=== PATIENT | male | born 1960 | race African-American/Black ===

== ENCOUNTER 2017-03-28 18:56 | Emergency (ER) | payer OTHER ==
[~2017-03-28] VITALS: Ht 167.6 cm; Wt 78.0 kg
[~2017-03-28 18:56] MED LIST: AMBIEN10 MG PO; AMLODIPINE BESYL5 MG PO; Aspirin E.C. PO; CLINDAMYCIN HC300 MG PO; CYCLOBENZAPRINE10 MG PO; ELAVIL25 MG PO; FLEXERIL10 MG PO; FLUOXETINE HCL10 MG PO; FLUOXETINE HCL40 MG PO; GABAPENTIN100 MG PO; GLIPIZIDE5 MG PO; HEPARIN SO5000 UNITS SC; IBUPROFEN800 MG PO; KEPPRA1000 MG PO; LANTUS 10100 UNITS/ SC; LEVETIRACETAM1000 MG PO; LIPITOR40 MG PO; LISINOPRIL2.5 MG PO; LO-DOSE ASPIRIN81 M1 PO; MELOXICAM15 MG PO; NAPROSYN500 MG PO; NORVASC5 MG PO; PERCOCET 5/31 TABLET PO; PROZAC20 MG PO; SEROQUEL12.5 MG PO; SIMVASTATIN20 MG PO; SIMVASTATIN40 MG PO; TRAMADOL HCL50 MG PO; VALIUM5 MG PO; VICODIN 5-3001 EACH PO; XARELTO20 MG PO
[2017-03-28 23:06] LABS: HEMATOCRIT 45.4 % (38.0-50.0); MCH 25.8 PG (29.0-34.0); MCHC 32.6 G/DL (30.0-36.0); MCV 79.1 FL (86-99); MEAN PLAT.VOLUME 8.2 uM^3 (9.0-12.4); PLATELET COUNT 309 K/uL (156-360); RBC DIS.WIDTH-SD 42.8 % (39-53); RED BLOOD COUNT 5.74 M/uL (4.00-5.50); WHITE BLOOD COUNT 7.4 K/uL (4.1-10.2)
[2017-03-28 23:18] LABS: CHLORIDE 104 mEq/L (99-109); POTASSIUM 3.4 mEq/L (3.7-5.4); SODIUM 141 mEq/L (136-147)
[2017-03-28 23:20] LABS: GLUCOSE 71 mg/dL (70-99)
[2017-03-28 23:22] LABS: ANION GAP 11 MEQ/L (2-14)
[2017-03-28 23:24] LABS: GFR ESTIMATE (CALCULATED) > 59 mL/min/
[2017-03-28 23:25] LABS: UREA NITROGEN (BUN) 5 mg/dL (9-23)
[2017-03-28 23:27] LABS: TROP-I INTERPRETATION NEGATIVE; TROPONIN-I < 0.01 ng/mL (0.0-0.30)
[2017-03-28] MEDS ORDERED: KEPPRA1000 MG PO (23:47)
[2017-03-28] MEDS ORDERED: NAPROSYN500 MG PO (23:47)
[2017-03-28] MEDS ORDERED: FLEXERIL10 MG PO (23:47)
[2017-03-28 23:52] VITALS: BP 146/99
[2017-03-28 23:56] LABS: CREATINE KINASE 71 IU/L (1-294)
== END 2017-03-28 23:53 | disposition home or self-care (01) ==
LOC: EME 18:56
PROVIDERS: Nurse Practitioner Family
DX: G40.909 Epilepsy, unspecified, not intractable, without status epilepticus (principal); M62.830 Muscle spasm of back; S40.021A Contusion of right upper arm, initial encounter; R51 Headache; M25.511 Pain in right shoulder; W19.XXXA Unspecified fall, initial encounter; Z79.01 Long term (current) use of anticoagulants; Z79.82 Long term (current) use of aspirin; I10 Essential (primary) hypertension; E78.5 Hyperlipidemia, unspecified; E11.9 Type 2 diabetes mellitus without complications; Z79.84 Long term (current) use of oral hypoglycemic drugs; Z86.73 Personal history of transient ischemic attack (TIA), and cerebral infarction without residual deficits; Z98.890 Other specified postprocedural states; G93.89 Other specified disorders of brain
CPT/HCPCS: 70450; 80048; 82550; 84484; 85027; 93005; 99281; 99283; J1885

== ENCOUNTER 2017-07-27 11:45 | Emergency (ER) | payer OTHER ==
[~2017-07-27] VITALS: Ht 167.6 cm; Wt 80.0 kg
[2017-07-27 13:05] LABS: HEMATOCRIT 48.7 % (38.0-50.0); MCH 25.7 PG (29.0-34.0); MCHC 32.9 G/DL (30.0-36.0); MCV 78.2 FL (86-99); PLATELET COUNT 325 K/uL (156-360); RBC DIS.WIDTH-CV 14.6 % (11.8-14.6); RBC DIS.WIDTH-SD 39.7 % (39-53); RED BLOOD COUNT 6.23 M/uL (4.00-5.50); WHITE BLOOD COUNT 13.5 K/uL (4.1-10.2)
[2017-07-27 13:14] LABS: PTT 25.9 SEC (25-37)
[2017-07-27 13:26] LABS: CHLORIDE 100 MEQ/L (99-109); POTASSIUM 3.8 MEQ/L (3.7-5.4); SODIUM 138 MEQ/L (136-147)
[2017-07-27 13:32] LABS: CREATININE 0.9 MG/DL (0.6-1.3); GFR ESTIMATE (CALCULATED) > 59 mL/min/ (58.99-99999); GLUCOSE 107 mg/dL (70-99); UREA NITROGEN (BUN) 4 mg/dL (9-23)
[2017-07-27 14:18] VITALS: BP 142/94
== END 2017-07-27 14:29 | disposition home or self-care (01) ==
LOC: EME 11:45
PROVIDERS: Emergency Medicine
DX: G40.909 Epilepsy, unspecified, not intractable, without status epilepticus (principal); S09.90XA Unspecified injury of head, initial encounter; I69.354 Hemiplegia and hemiparesis following cerebral infarction affecting left non-dominant side; E11.9 Type 2 diabetes mellitus without complications; I10 Essential (primary) hypertension; E78.5 Hyperlipidemia, unspecified; F32.9 Major depressive disorder, single episode, unspecified; Z79.82 Long term (current) use of aspirin; Z79.84 Long term (current) use of oral hypoglycemic drugs
CPT/HCPCS: 70450; 80048; 85027; 85610; 85730; 99281; 99284